=== PATIENT | male | born 1960 | race Two or more races ===

== ENCOUNTER 2025-05-08 09:40 | Day surgery (SDC) | payer OTHER, SELFPAY ==
--- NOTE | 2025-05-06 06:00 | EKG_ITS ---
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
[2025-05-06 09:31] VITALS: BMI 27.3
[2025-05-06 10:26] LABS: Basophils # (Auto) 0.0 Thou/mm3 (0.0-0.2); Basophils % (Auto) 1 % (0-2.5); Eosinophils # (Auto) 0.2 Thou/mm3 (0.0-0.5); Eosinophils % (Auto) 2 % (0-10); Hematocrit 48.5 % (41.0-53.0); Hemoglobin 16.9 g/dL (13.5-16.0); Immature Granulocytes Auto 0.02 Thou/mm3 (0.00-0.00); Lymphocytes # (Auto) 1.0 Thou/mm3 (1.0-4.8); Lymphocytes % (Auto) 14 % (10-50); Mean Corpuscular HGB Conc 34.8 g/dl (31.0-37.0); Mean Corpuscular Hemoglobin 32.2 pg (25.0-35.0); Mean Corpuscular Volume 92 fL (80-100); Monocytes # (Auto) 0.7 Thou/mm3 (0.0-0.8); Monocytes % (Auto) 9 % (0-12); Neutrophils # (Auto) 5.5 Thou/mm3 (1.8-7.7); Neutrophils % (Auto) 74 % (37-80); Nucleated Red Blood Cell # 0.00 Thou/mm3 (0.00-0.00); Nucleated Red Blood Cell % 0 /100 WBC (0); Platelet Count 238 Thou/mm3 (140-440); RDW Standard Deviation 41.1 fL (35.1-43.9); Red Blood Count 5.25 Miln/mm3 (4.50-5.90); White Blood Count 7.5 Thou/mm3 (3.8-10.6)
[2025-05-06 10:34] LABS: Alanine Aminotransferase 35 U/L (10-49); Albumin, Serum 4.4 gm/dL (3.4-4.8); Albumin/Globulin Ratio 1.7 (1.2-2.2); Alkaline Phosphatase 115 U/L (46-116); Anion Gap 8 (7-16); Aspartate Amino Transferase 28 U/L (0-34); BUN/Creatinine Ratio 10 Ratio (12-20); Bilirubin,Total 0.7 mg/dL (0.3-1.2); Blood Urea Nitrogen 9 mg/dL (9-23); Calcium 9.4 mg/dL (8.3-10.6); Calcium (Corrected) 9.4 mg/dL (8.5-10.1); Carbon Dioxide 26.7 mMol/L (20.0-31.0); Chloride 107 mMol/L (98-107); Creatinine (Component) 0.9 mg/dL (0.6-1.3); Estimated Creatinine Clearance 77.1 mL/min (>60); Globulin 2.6 gm/dL (2.3-3.5); Glucose 105 mg/dL (74-106); Osmolality,Calculated 281 (275-295); Potassium 4.9 mMol/L (3.4-5.1); Sodium 142 mMol/L (136-145); Total Protein 7.0 gm/dL (5.7-8.2); eGFR > 60 See Note
[2025-05-08] VITALS (12 sets, daily range): BP systolic 111–156; BP diastolic 84–104; PULSE 52–70; RESP 13–22; TEMP 36.2–36.4; O2SAT 94–98; BMI 27.0
--- NOTE | 2025-05-08 13:03 | ESOP_ITS ---
Date of Procedure 05/08/25 Pre Op Diagnosis Incarcerated right inguinal hernia Post Op Diagnosis Incarcerated right inguinal hernia Procedure Repair of incarcerated right inguinal hernia with mesh Findings Direct right inguinal hernia with incarcerated preperitoneal fat Procedure Description Patient brought into the operating room in supine position. After administration of general endotracheal anesthesia, patient's right groin was shaved, prepped and draped in standard surgical manner. The right inguinal crease was anesthetized with half percent Marcaine. An approximately 6 cm incision was made and dissection was carried to subcutaneous tissue. The Quintin's fascia was divided and the external oblique aponeurosis was opened towa rds the external ring. The hernia sac and the spermatic cord structures were from the posterior aspect of the external oblique aponeurosis at the level of pubic tubercle. The hernia sac was then meticulously dissected off the spermatic cord structures at the level of internal ring. The hernia sac along with incarcerated preperitoneal fat were reduced. The defect was closed with interrupted [id number] sutures using 0 Vicryl. The floor of inguinal canal was then reconstructed with ultra Pro proceed mesh. The mesh was secured with running 2-0 Prolene suture. The mesh secured medially to the pubic tubercle, superiorly into the conjoin tendon, inferiorly and to the shelving edge of inguinal ligament, the mesh was placed around the cord structures and tacked under the external oblique aponeurosis laterally. The area was copiously and thoroughly washed and irrigated, all the fluids were suctioned and the suction fluid returned clear. Hemostasis was adequate and satisfactory. External oblique aponeurosis was closed with running 2-0 Vicryl suture, and Quintin's fascia was closed with interrupted suture using 3-0 Vicryl. The incision was closed with 4-0 Monocryl in subcutaneous fashion. Instruments, needles and sponge counts were reported to be correct ?2. Patient tolerated the procedure well. He was extubated, breathing spontaneously and without difficulty and was transferred to postanesthesia care in stable condition. Anesthesia GETA and local Pathology / specimen None Estimated Blood Loss 15 Condition Stable Disposition PACU Surgeon Fei Singleton MD Surgical Staff Operation Date: 05/08/25 12:15 Case Staff Anesthesiologist: Giovany Michele RN First Assistant: Lisa Douglass
--- NOTE | 2025-05-08 13:09 | SUR.PHASEI ---
pt received from OR in recovery bay 5. pt obtunded, breathing unlabored on oxymask 8l, oral airway in place. v/s stable. pt dressing to right lower abd cdi. report received from Dr. Michele and Eden MAYES.
--- NOTE | 2025-05-08 13:52 | SUR.PHASEII ---
pt able to tolerate jello without difficulty swallowing or nausea/vomiting.
--- NOTE | 2025-05-08 15:15 | SUR.PHASEII ---
pt awake and alert, breathing unlabored on room air. v/s stable. pt dressing to abd cdi, abd binder in place. pt able to ambulate to wheelchair with steady gait. d/c instructions given with ronda in room, all questions answered. pt d/c via wheelchair with all belongings.
== END 2025-05-08 15:15 | disposition home or self-care (01) ==
PROVIDERS: Anesthesiology; Referring Provider Surgery; Visit Provider Surgery
PROC: (CPT 49507; principal; 2025-05-08 12:00)
DX: K40.30 Unilateral inguinal hernia, with obstruction, without gangrene, not specified as recurrent (principal); Z01.810 Encounter for preprocedural cardiovascular examination; I10 Essential (primary) hypertension; Z79.899 Other long term (current) drug therapy
CPT/HCPCS: 49507; 36415; 80053; 85025; 93005; A4217; A4649; C1781; J0131; J0690; J1100; J1885; J2250; J2405; J2704; J3010; J3490